=== PATIENT | male | born 1940 | race Two or more races ===

== ENCOUNTER 2022-04-24 04:31 | Day surgery (SDC) | payer OTHER, BC ==
[2022-04-22 15:12] VITALS: BMI 23.1
[2022-04-24 10:32] VITALS: BP 115/74; PULSE 100
[2022-04-24 13:03] VITALS: TEMP 98.9
== END 2022-04-24 10:40 | disposition home or self-care (01) ==
LOC: JASU-ENDO 04:31
PROVIDERS: ATTEND Internal Medicine Gastroenterology
PROC: 0DJD8ZZ Inspection of Lower Intestinal Tract, Via Natural or Artificial Opening Endoscopic (ICD-10-PCS; principal; 2022-04-24 09:00)
DX: Z12.11 Encounter for screening for malignant neoplasm of colon (principal); K57.30 Diverticulosis of large intestine without perforation or abscess without bleeding; K63.89 Other specified diseases of intestine

== ENCOUNTER 2025-02-17 18:27 | Emergency (ER) | payer OTHER, BC ==
[2025-02-17 18:35] VITALS: RESP 16; TEMP 98.3; BMI 19.5
[2025-02-17] MEDS: ACETAMINOPHEN 1000 MG/100 ML BAG IVPB ONE (20:05)
[2025-02-17] MEDS ORDERED: ACETAMINOPHEN INJECTION 100 ML ONE (20:08)
[2025-02-17 20:15] LABS: PH,URINE 5.5 (5.0-8.0); URINE APPEARANCE Error; URINE BILIRUBIN NEGATIVE (NEGATIVE); URINE COLOR YELLOW; URINE GLUCOSE (UA) NEGATIVE (NEGATIVE); URINE KETONE NEGATIVE (NEGATIVE); URINE LEUK ESTERASE NEGATIVE (NEGATIVE); URINE NITRITE NEGATIVE (NEGATIVE); URINE PROTEIN NEGATIVE (NEGATIVE); URINE UROBILINOGEN 0.2 mg/dL (0.2-1.0)
[2025-02-17 20:31] LABS: ABSOLUTE IMMATURE GRANULOCYTES 0.07 x10^3/uL (0.0-0.031); EOSINOPHIL % 0.9 % (0.8-7.0); EOSINOPHILS # 0.14 x10^3/uL (0.04-0.54); HEMOGLOBIN 14.8 g/dL (13.7-17.5); MCHC 33.6 g/dl (32.3-36.5); MEAN CELL VOLUME 90.3 fl (79.0-92.2); MEAN PLT VOLUME 10.5 fl (9.4-12.4); MONOCYTE # 1.21 x10^3/uL (0.30-0.82); MONOCYTE % 7.6 % (5.3-12.2); PLATELET COUNT 271 x10^3/uL (163-337); RDW 13.5 % (12.6-16.6)
[2025-02-17 20:42] LABS: ACTIVATED PTT 27.2 SECONDS (25.2-36.5)
[2025-02-17 20:50] LABS: POTASSIUM 4.3 mmol/L (3.5-5.1)
[2025-02-17 20:52] LABS: CALCIUM 9.9 mg/dL (8.5-10.1)
[2025-02-17 20:53] LABS: BLOOD UREA NITROGEN 22.3 mg/dL (7-18); MAGNESIUM 2.4 mg/dL (1.8-2.4)
[2025-02-17 20:56] LABS: CREATININE 0.7 mg/dL (0.55-1.3); PHOSPHOROUS 3.7 mg/dL (2.5-4.9)
[2025-02-17 20:57] LABS: BILIRUBIN,TOTAL 0.5 mg/dL (0.2-1); TOT PROT 6.9 g/dl (6.4-8.2)
[2025-02-17] MEDS ORDERED: KETOROLAC TROMETHAMINE 15 MG/ML VIAL ONE (21:57)
[2025-02-17 22:38] VITALS: BP 169/105
[2025-02-17 23:05] VITALS: PULSE 92
[2025-02-17] MEDS: KETOROLAC TROMETHAMINE 15 MG/ML VIAL IVPUSH ONE (23:11)
== END 2025-02-18 01:30 | disposition left against medical advice (07) ==
LOC: JER 18:27
PROC: 3E0333Z Introduction of Anti-inflammatory into Peripheral Vein, Percutaneous Approach (ICD-10-PCS; principal; 2025-02-17)
PROC: 3E033NZ Introduction of Analgesics, Hypnotics, Sedatives into Peripheral Vein, Percutaneous Approach (ICD-10-PCS; 2025-02-17)
DX: R10.31 Right lower quadrant pain (principal); R30.0 Dysuria; I45.10 Unspecified right bundle-branch block; K40.30 Unilateral inguinal hernia, with obstruction, without gangrene, not specified as recurrent
CPT/HCPCS: 36415; 74177-TC; 80053; 81003; 83735; 84100; 85025; 85610; 85730; 87086; 93005; 93010; 99285-25; J0131; Q9967

== ENCOUNTER 2025-02-19 09:18 | Emergency (ER) | payer OTHER, BC ==
[2025-02-19 09:25] VITALS: RESP 20; TEMP 98.6; BMI 20.3
[2025-02-19 11:08] LABS: ABSOLUTE IMMATURE GRANULOCYTES 0.06 x10^3/uL (0.0-0.031); BASOPHILS # 0.07 x10^3/uL (0.01-0.08); EOSINOPHIL % 0.5 % (0.8-7.0); EOSINOPHILS # 0.06 x10^3/uL (0.04-0.54); HEMATOCRIT 42.9 % (40.1-51.0); HEMOGLOBIN 14.3 g/dL (13.7-17.5); MCHC 33.3 g/dl (32.3-36.5); MEAN CELL VOLUME 91.1 fl (79.0-92.2); MEAN PLT VOLUME 10.4 fl (9.4-12.4); MONOCYTE # 0.85 x10^3/uL (0.30-0.82); MONOCYTE % 7.2 % (5.3-12.2); PLATELET COUNT 262 x10^3/uL (163-337); RDW 13.6 % (12.6-16.6)
[2025-02-19 11:15] LABS: INR 1.05 (0.83-1.09); PROTHROMBIN TIME (PATIENT) 11.5 SEC (9.7-13.0)
[2025-02-19 11:18] LABS: ACTIVATED PTT 28.4 SECONDS (25.2-36.5)
[2025-02-19 11:26] LABS: POTASSIUM 4.1 mmol/L (3.5-5.1)
[2025-02-19 11:28] LABS: ALBUMIN 3.6 g/dl (3.4-5.0); CALCIUM 9.2 mg/dL (8.5-10.1)
[2025-02-19 11:29] LABS: BLOOD UREA NITROGEN 17.3 mg/dL (7-18)
[2025-02-19 11:32] LABS: CREATININE 0.8 mg/dL (0.55-1.3)
[2025-02-19 11:33] LABS: BILIRUBIN,TOTAL 0.5 mg/dL (0.2-1); TOT PROT 6.4 g/dl (6.4-8.2)
[2025-02-19 15:55] VITALS: BP 129/78; PULSE 68
== END 2025-02-19 17:33 | disposition home or self-care (01) ==
LOC: JER 09:18
DX: N32.89 Other specified disorders of bladder (principal); R94.31 Abnormal electrocardiogram [ECG] [EKG]
CPT/HCPCS: 36415; 74177-TC; 80053; 83605; 85025; 85610; 85730; 86850; 86900; 86901; 93005; 93010; 99285-25; Q9967